=== PATIENT | female | born 1950 | race Caucasian/White ===

== ENCOUNTER 2024-06-17 13:11 | Inpatient (IN) | payer MEDICARE ==
[~2024-06-17] VITALS: Ht 160 cm; Wt 87.2 kg
[2024-06-17] MEDS ORDERED: CLOP-31 MT (13:22)
[2024-06-17] MEDS: IPRATROPIUM BROMIDE (0.02%) 0.5MG/2.5ML NEB HHN STA (13:55)
[2024-06-17] MEDS: ALBUTEROL (0.083%) 2.5MG/3ML NEB HHN STA (13:55)
[2024-06-17 13:59] VITALS: PULSE 91; RESP 16
[2024-06-17] MEDS: METHYLPREDNISOLONE SOD SUCC 125MG/2ML (ACT-O-VIAL) IV STA (14:29)
[2024-06-17 15:15] LABS: BASOPHILS % 0.9 % (0.0-2.0); EOSINOPHILS % 0.3 % (0.0-5.0); HEMATOCRIT. 30.3 % (36.0-48.0); HEMOGLOBIN. 9.9 g/dL (12.0-16.0); LYMPHOCYTES % 16.6 % (20.0-50.0); MEAN CORPUSCULAR HGB CONC 32.7 g/dL (31.0-37.0); MEAN CORPUSCULAR VOLUME 82.6 fL (81.0-99.0); MEAN PLATELET VOLUME 7.1 fl (7.4-10.4); MONOCYTES % 11.7 % (2.0-8.0); NEUTROPHILS % 70.5 % (40.0-76.0); PLATELET 314 x1000/uL (130-400); RED BLOOD CELL COUNT 3.66 mill/uL (4.2-5.4); RED CELL DISTRIBUTION WIDTH 20.2 % (11.6-14.6); WHITE BLOOD COUNT 6.2 x1000/uL (4.5-11.0)
[2024-06-17] MEDS: MAGNESIUM 2 G PREMIX 50 ML IV ONE (15:18)
[2024-06-17 15:21] LABS: CHLORIDE 104 mEq/L (98-107); POTASSIUM 3.9 mEq/L (3.5-5.1); SODIUM 138 mEq/L (136-145)
[2024-06-17 15:22] LABS: CALCIUM 9.4 mg/dL (8.7-10.4); CARBON DIOXIDE 26 mEq/L (21-32)
[2024-06-17 15:24] LABS: INR 1.2; PARTIAL THROMBOPLASTIN TIME 27.6 sec (23.4-31.0); PROTHROMBIN TIME 12.3 sec (9.6-11.0)
[2024-06-17 15:27] LABS: GLUCOSE 84 mg/dL (70-105); UREA NITROGEN BLOOD 17 mg/dL (9-23)
[2024-06-17 15:28] LABS: ETHANOL BLOOD < 10 mg/dL (<10)
[2024-06-17 15:38] LABS: TROPONIN I HIGH SENSITIVITY 52 ng/L (3.0-34)
[2024-06-17] MEDS: FUROSEMIDE 40MG/4ML VIAL IVP NR (16:17)
[2024-06-17] MEDS ORDERED: ACETAMINOPHEN 325MG TABLET PO PRN (17:00)
[2024-06-17] MEDS ORDERED: NALOXONE HCL 0.4MG/ML VIAL IV PRN (17:00)
[2024-06-17] MEDS ORDERED: HYDRALAZINE 20MG/ML VIAL IV PRN (17:00)
[2024-06-17] MEDS ORDERED: ONDANSETRON HCL 4MG/2ML INJ IV PRN (17:00)
[2024-06-17] MEDS: FUROSEMIDE 40MG/4ML VIAL IVP SCH (17:25)
[2024-06-17 17:26] LABS: CLARITY URINE CLEAR (CLEAR); COLOR URINE YELLOW (YELLOW); GLUCOSE URINE NEGATIVE (NEGATIVE); KETONES URINE NEGATIVE (NEGATIVE); LEUKOCYTE ESTERASE URINE 1+ (NEGATIVE); NITRITE URINE POSITIVE (NEGATIVE); OCCULT BLOOD URINE 3+ (NEGATIVE); PROTEIN URINE 3+ (NEGATIVE); SPECIFIC GRAVITY URINE 1.012 (1.005-1.030); UROBILINOGEN URINE 0.2 E.U./dL (0.2-1.0)
[2024-06-17] MEDS: METOPROLOL TARTRATE 5MG/5ML VIAL IV NR (17:26)
[2024-06-17] MEDS: ENOXAPARIN 80MG/0.8ML SYR SUBCUT SCH (17:27)
[2024-06-17 17:37] LABS: BACTERIA URINE 1+; RBC URINE 15-25 /hpf (0-2); SQUAMOUS EPITHELIAL CELL URINE FEW /lpf (RARE/1+)
[2024-06-17 17:42] LABS: *AMPHETAMINES SCREEN URINE NEGATIVE (NEGATIVE); *BARBITURATES SCREEN URINE NEGATIVE (NEGATIVE); *BENZODIAZEPINES SCREEN URINE NEGATIVE (NEGATIVE); *COCAINE SCREEN URINE NEGATIVE (NEGATIVE); CANNABINOID URINE SCREEN NEGATIVE (NEGATIVE); ECSTASY MDMA SCREEN URINE NEGATIVE (NEGATIVE); METHADONE URINE SCREEN NEGATIVE (NEGATIVE); OPIATES URINE SCREEN NEGATIVE (NEGATIVE); PHENCYCLIDINE URINE SCREEN NEGATIVE (NEGATIVE)
[2024-06-17 18:00] VITALS: BP 145/83; PULSE 102; RESP 20; TEMP 36.5
[2024-06-17] MEDS ORDERED: RIVA20TA (20:13)
[2024-06-17] MEDS ORDERED: FURO40TA5 PO (20:13)
[2024-06-17] MEDS ORDERED: LABE200T9 (20:13)
[2024-06-17] MEDS: HYDROCODONE/ACETAMINOPHEN 5/325MG TABLET PO PRN (20:24)
[2024-06-17] MEDS: METOPROLOL TARTRATE 25MG TABLET PO SCH (20:24)
[2024-06-17 20:28] VITALS: BP 148/52; PULSE 49; RESP 20; TEMP 36.9; O2SAT 96
[2024-06-18] VITALS (9 sets, daily range): BP systolic 99–147; BP diastolic 62–79; PULSE 53–75; RESP 16–20; TEMP 35.6–36.7; O2SAT 94–98
[2024-06-18 01:40] LABS: TROPONIN I HIGH SENSITIVITY 45 ng/L (3.0-34)
[2024-06-18 06:30] LABS: BASOPHILS % 0.2 % (0.0-2.0); HEMATOCRIT. 29.5 % (36.0-48.0); HEMOGLOBIN. 9.4 g/dL (12.0-16.0); MEAN CORPUSCULAR HEMOGLOBIN 26.2 pg (28.0-32.0); MEAN CORPUSCULAR HGB CONC 31.9 g/dL (31.0-37.0); MEAN CORPUSCULAR VOLUME 82.2 fL (81.0-99.0); MEAN PLATELET VOLUME 7.3 fl (7.4-10.4); MONOCYTES % 3.8 % (2.0-8.0); PLATELET 291 x1000/uL (130-400); RED CELL DISTRIBUTION WIDTH 20.1 % (11.6-14.6); WHITE BLOOD COUNT 4.6 x1000/uL (4.5-11.0)
[2024-06-18 06:33] LABS: CALCIUM 9.1 mg/dL (8.7-10.4)
[2024-06-18 06:39] LABS: CREATININE 1.1 mg/dL (0.6-1.0)
[2024-06-18] MEDS: PANTOPRAZOLE SODIUM 40 MG/VIAL IV SCH (09:08)
[2024-06-18] MEDS: CLOPIDOGREL 75MG TABLET PO SCH (09:09)
[2024-06-18] MEDS: IPRATROPIUM/ALBUTEROL 0.5-3(2.5)MG/3ML NEB NEB PRN (09:14)
[2024-06-18 10:10] LABS: BG BASE EXCESS 0.8 mmol/L (-2.0-3.0); BG CARBOXYHEMOGLOBIN 0.5 % (0.5-1.5); BG DEOXYHEMOGLOBIN 8.6 % (0.0-5.0); BG FRACTION INSPIRED OXYGEN 21; BG HCO3 ACT 25.2 mmol/L (21.0-28.0); BG METHEMOGLOBIN 0.3 % (0.5-1.5); BG OXYGEN SATURATION 91.3 % (94.0-98.0); BG OXYHEMOGLOBIN 90.6 % (94.0-98.0); BG PCO2 39.7 mmHg (32.0-45.0); BG PH 7.421 (7.350-7.450); BG SAMPLE SITE RIGHT BRACHIAL; BG TOTAL HEMOGLOBIN 10.6 g/dL (12.0-16.0); BG VENT MODE ROOM AIR
[2024-06-19] VITALS: BP 138/71; PULSE 69; RESP 20; TEMP 36.4; O2SAT 98
[2024-06-19 04:00] VITALS: BP 138/78; PULSE 65; RESP 18; TEMP 37; O2SAT 98
[2024-06-19 07:10] LABS: BASOPHILS % 0.6 % (0.0-2.0); EOSINOPHILS % 0.3 % (0.0-5.0); HEMATOCRIT. 30.7 % (36.0-48.0); HEMOGLOBIN. 9.6 g/dL (12.0-16.0); LYMPHOCYTES % 11.8 % (20.0-50.0); MEAN CORPUSCULAR HEMOGLOBIN 26.5 pg (28.0-32.0); MEAN CORPUSCULAR HGB CONC 31.4 g/dL (31.0-37.0); MEAN CORPUSCULAR VOLUME 84.6 fL (81.0-99.0); MEAN PLATELET VOLUME 7.6 fl (7.4-10.4); NEUTROPHILS % 78.3 % (40.0-76.0); PLATELET 298 x1000/uL (130-400); RED BLOOD CELL COUNT 3.63 mill/uL (4.2-5.4); RED CELL DISTRIBUTION WIDTH 20.8 % (11.6-14.6); WHITE BLOOD COUNT 7.4 x1000/uL (4.5-11.0)
[2024-06-19 07:43] LABS: CALCIUM 9.2 mg/dL (8.7-10.4)
[2024-06-19 07:47] LABS: CREATININE 1.3 mg/dL (0.6-1.0)
[2024-06-19 08:00] VITALS: BP 123/69; PULSE 65; RESP 20; TEMP 36.1; O2SAT 99
[2024-06-19] MEDS: EMPAGLIFLOZIN 10MG TABLET PO SCH (08:32)
[2024-06-19 11:58] VITALS: BP 130/78; PULSE 70; RESP 20; TEMP 36.4; O2SAT 100
[2024-06-19 15:44] VITALS: BP 143/77; PULSE 65; RESP 18; TEMP 36.1; O2SAT 99
[2024-06-19 20:00] VITALS: BP 141/63; PULSE 43; RESP 20; TEMP 36.7; O2SAT 100
[2024-06-19] MEDS: ZOLPIDEM TARTRATE 5MG TABLET PO PRN (21:06)
[2024-06-20 00:08] VITALS: BP 145/83; PULSE 69; RESP 20; TEMP 36.7; O2SAT 98
[2024-06-20 04:00] VITALS: BP 145/67; PULSE 50; RESP 18; TEMP 36.8; O2SAT 98
[2024-06-20 06:20] LABS: BASOPHILS % 0.6 % (0.0-2.0); EOSINOPHILS % 0.9 % (0.0-5.0); HEMATOCRIT. 30.4 % (36.0-48.0); HEMOGLOBIN. 9.8 g/dL (12.0-16.0); LYMPHOCYTES % 16.1 % (20.0-50.0); MEAN CORPUSCULAR HEMOGLOBIN 26.4 pg (28.0-32.0); MEAN CORPUSCULAR HGB CONC 32.1 g/dL (31.0-37.0); MEAN CORPUSCULAR VOLUME 82.2 fL (81.0-99.0); MEAN PLATELET VOLUME 7.5 fl (7.4-10.4); MONOCYTES % 9.9 % (2.0-8.0); NEUTROPHILS % 72.5 % (40.0-76.0); PLATELET 299 x1000/uL (130-400); RED BLOOD CELL COUNT 3.69 mill/uL (4.2-5.4); RED CELL DISTRIBUTION WIDTH 20.6 % (11.6-14.6); WHITE BLOOD COUNT 6.3 x1000/uL (4.5-11.0)
[2024-06-20 06:44] LABS: POTASSIUM 4.1 mEq/L (3.5-5.1)
[2024-06-20 06:46] LABS: CALCIUM 9.2 mg/dL (8.7-10.4)
[2024-06-20 06:51] LABS: CREATININE 1.2 mg/dL (0.6-1.0)
[2024-06-20 08:00] VITALS: BP 144/78; PULSE 50; RESP 20; TEMP 36.5; O2SAT 98
[2024-06-20] MEDS: FAMOTIDINE 20MG/2ML VIAL IV SCH (08:38)
[2024-06-20] MEDS ORDERED: VERAPAMIL HCL 2.5 MG/1 ML 2ML VIAL IV ONE (10:34)
[2024-06-20] MEDS ORDERED: HEPARIN 1000 UNITS/ML 10ML ONE (10:34)
[2024-06-20] MEDS ORDERED: FENTANYL CITRATE/PF 50MCG/ML 2ML VIAL ONE (10:34)
[2024-06-20] MEDS ORDERED: DIPHENHYDRAMINE 50MG/ML VIAL ONE (10:34)
[2024-06-20] MEDS ORDERED: MIDAZOLAM HCL 2 MG/2 ML VIAL ONE (10:34)
[2024-06-20] MEDS ORDERED: LIDOCAINE HCL 1% 20ML VIAL ONE (10:34)
[2024-06-20] MEDS ORDERED: IODIXANOL 320MG/ML 100 ML BOTTLE IV ONE (10:34)
[2024-06-20] MEDS ORDERED: FUROSEMIDE 40MG/4ML VIAL ONE (11:10)
[2024-06-20 12:43] VITALS: PULSE 86; RESP 16; O2SAT 100
[2024-06-20 15:58] VITALS: BP 161/71; PULSE 76; RESP 20; TEMP 36.6; O2SAT 100
[2024-06-20 20:00] VITALS: BP 129/78; PULSE 90; RESP 19; TEMP 36.6; O2SAT 94
[2024-06-20] MEDS: FUROSEMIDE 40MG/4ML VIAL IVP SCH (21:21)
[2024-06-21] VITALS (7 sets, daily range): BP systolic 136–167; BP diastolic 62–78; PULSE 50–83; RESP 19–20; TEMP 36.5–36.8; O2SAT 96–100
[2024-06-21] MEDS ORDERED: METO25TA6 PO (15:11)
[2024-06-21] MEDS ORDERED: EMPA10TA PO (15:11)
[2024-06-21] MEDS ORDERED: FURO-151 MT (15:11)
[2024-06-21] MEDS ORDERED: APIX5TAB MT (15:11)
[2024-06-21] MEDS: CLONIDINE 0.1MG TABLET PO PRN (17:28)
[2024-06-22] VITALS (7 sets, daily range): BP systolic 128–162; BP diastolic 68–88; PULSE 45–84; RESP 18–20; TEMP 36.5–37.2; O2SAT 96–100
[2024-06-22] MEDS: SODIUM HYPOCHLORITE 0.125% 473ML SOLUTION TOP SCH (10:35)
== END 2024-06-22 20:25 | disposition home or self-care (01) | DRG 280 ==
LOC: ER 13:11 → EDBEDREQ 13:44 → 7WST 19:18
PROVIDERS: ADMIT Internal Medicine; ATTEND Internal Medicine
PROC: 4A023N7 Measurement of Cardiac Sampling and Pressure, Left Heart, Percutaneous Approach (ICD-10-PCS; principal; 2024-06-20)
PROC: B211YZZ Fluoroscopy of Multiple Coronary Arteries using Other Contrast (ICD-10-PCS; 2024-06-20)
DX: I21.4 Non-ST elevation (NSTEMI) myocardial infarction (principal); J96.91 Respiratory failure, unspecified with hypoxia; I48.19 Other persistent atrial fibrillation; N17.9 Acute kidney failure, unspecified; I42.8 Other cardiomyopathies; I13.0 Hypertensive heart and chronic kidney disease with heart failure and stage 1 through stage 4 chronic kidney disease, or unspecified chronic kidney disease; L97.925 Non-pressure chronic ulcer of unspecified part of left lower leg with muscle involvement without evidence of necrosis; I50.9 Heart failure, unspecified; I83.009 Varicose veins of unspecified lower extremity with ulcer of unspecified site; I73.9 Peripheral vascular disease, unspecified; I25.10 Atherosclerotic heart disease of native coronary artery without angina pectoris; E78.00 Pure hypercholesterolemia, unspecified; N18.9 Chronic kidney disease, unspecified; Z79.01 Long term (current) use of anticoagulants; Z86.73 Personal history of transient ischemic attack (TIA), and cerebral infarction without residual deficits; Z88.1 Allergy status to other antibiotic agents
CPT/HCPCS: 36415; 36600; 71045; 80048; 80305; 80320; 81003; 82375; 82805; 83880; 84484; 85025; 86850; 86900; 93005; 93306; 93458; 93970; 94070; 94640; 94664; 96365; 96366; 96372; 96375; 97162; 98960; 99291; A4606; C1769; C1887; C1893; J0360; J1200; J1644; J1650; J1940; J2250; J2470; J2919; J3010; J3475; J3490; Q9967; G0480